=== PATIENT | male | born 1955 | race Caucasian/White ===

== ENCOUNTER 2016-12-30 13:08 | Emergency (ER) | payer OTHER ==
[2016-12-30 13:26] VITALS: BP 116/74; PULSE 86; TEMP 98; BMI 33.6
--- NOTE | 2016-12-30 14:37 | PDOC ---
History of Present Illness - General History Source: Patient, Family ([id number]) Exam Limitations: No Limitations - History of Present Illness Initial Comments: 12/30/16 15:05 The patient is a 61 year old female with a significant PMH of HTN, anxiety, arthritis, and hernia who presents to the emergency department with face redness and pus release from the scalp beginning approximately last week. The patient reports putting a new [place] dye in her hair and feeling as though she developed a rash and noted the presence of pus. The patients daughter-in law notes giving the patient Benadryl with no relief. She also mentioned that the patient is allergic to peroxide but used the dye on the assumption that she would not develop a reaction. The patient normally resides in [place] but is in [facility]. The patient denies chest pain, shortness of breath, headache and dizziness. Denies fever, chills, nausea, vomit, diarrhea and constipation. Denies dysuria, frequency, urgency and hematuria. Allergies: Aspirin, Peroxide Social history: No reported cigarette, alcohol, or drug use. <Tacho Vidal - Last Filed: 12/30/16 15:39> <Anat Spencer - Last Filed: 12/30/16 15:55> - General Chief Complaint: Burn Stated Complaint: BURN/RASH Time Seen by Provider: 12/30/16 14:35 Past History <Tacho Vidal - Last Filed: 12/30/16 15:39> - Past Medical History Asthma: Yes GI Disorders: Yes (Umbilical Hernia) HTN: Yes Psychiatric Problems: Yes (Anxiety) Other medical history: Arthritis - Surgical History Cholecystectomy: Yes - Immunization History Immunization Up to Date: Yes - Suicide/Smoking/Psychosocial Hx Smoking History: Never smoked Have you smoked in the past 12 months: No Information on smoking cessation initiated: No Hx Alcohol Use: No Drug/Substance Use Hx: No Substance Use Type: None <Anat Spencer - Last Filed: 12/30/16 15:55> - Past Medical History Allergies/Adverse Reactions: Allergies Allergy/AdvReac Type Severity Reaction Status Date / Time aspirin Allergy Verified 12/30/16 13:21 Home Medications: Ambulatory Orders Cephalexin [Keflex] 500 mg PO TID #30 capsule 12/30/16 Clonazepam [KlonoPIN -] 2 mg PO DAILY 12/30/16 Lisinopril/Hydrochlorothiazide [Lisinopril-Hctz 20-25 mg Tab] 1 each PO ASDIR Loratadine [Claritin] 10 mg PO DAILY #30 tablet 12/30/16 Methylprednisolone [Medrol Dose Gerson] 4 mg PO ASDIR #21 tablet 12/30/16 Naproxen Sodium [Naproxen Sodium ER] 500 mg PO ASDIR 12/30/16 Naproxen [Naprosyn -] 500 mg PO BID #30 tablet 12/30/16 Sertraline HCl [Zoloft -] 50 mg PO DAILY 12/30/16 Review of Systems - Review of Systems Able to Perform ROS?: Yes Comments:: 12/30/16 15:05 GENERAL/CONSTITUTIONAL: No fever or chills. No weakness. HEAD, EYES, EARS, NOSE AND THROAT: No change in vision. No ear pain or discharge. No sore throat. CARDIOVASCULAR: No chest pain or shortness of breath. RESPIRATORY: No cough, wheezing, or hemoptysis. GASTROINTESTINAL: No nausea, vomiting, diarrhea or constipation. GENITOURINARY: No dysuria, frequency, or change in urination. MUSCULOSKELETAL: No joint or muscle swelling or pain. No neck or back pain. SKIN: (+) Face redness and swelling. NEUROLOGIC: No headache, vertigo, loss of consciousness, or change in strength/ sensation. ENDOCRINE: No increased thirst. No abnormal weight change. HEMATOLOGIC/LYMPHATIC: No anemia, easy bleeding, or history of blood clots. ALLERGIC/IMMUNOLOGIC: No hives or skin allergy. (+) Pruritis on scalp. <Tacho Vidal - Last Filed: 12/30/16 15:39> *Physical Exam - Vital Signs Last Vital Signs Temp Pulse Resp BP Pulse Ox 98.0 F 86 15 116/74 97 12/30/16 13:21 12/30/16 13:21 12/30/16 13:21 12/30/16 13:21 12/30/16 13:21 - Physical Exam Comments: 12/30/16 15:05 GENERAL: Awake, alert, and fully oriented, in no acute distress HEAD: (+) Erythematous scaling skin to scalp. (+) Palpable occipital lymph node on the right side. No evidence of cellulitis on skin. No signs of trauma EYES: PERRLA, EOMI, sclera anicteric, conjunctiva clear ENT: Auricles normal inspection, hearing grossly normal, nares patent, oropharynx clear without exudates. Moist mucosa NECK: Normal ROM, supple, no lymphadenopathy, JVD, or masses LUNGS: Breath sounds equal, clear to auscultation bilaterally. No wheezes, and no crackles HEART: Regular rate and rhythm, normal S1 and S2, no murmurs, rubs or gallops ABDOMEN: Soft, nontender, normoactive bowel sounds. No guarding, no rebound. No masses EXTREMITIES: Normal range of motion, no edema. No clubbing or cyanosis. No cords, erythema, or tenderness NEUROLOGICAL: Cranial nerves II through XII grossly intact. Normal speech, normal gait SKIN: (+) Right periorbital edema, mild erythema. (+) Dry scalp, erythema on scalp. Warm, Dry, normal turgor, no lesions. No lesions, abrasions, or lacerations noted. <Tacho Vidal - Last Filed: 12/30/16 15:39> - Vital Signs Last Vital Signs Temp Pulse Resp BP Pulse Ox 98.0 F 86 15 116/74 97 12/30/16 13:21 12/30/16 13:21 12/30/16 13:21 12/30/16 13:21 12/30/16 13:21 <Anat Spencer - Last Filed: 12/30/16 15:55> Medical Decision Making - Medical Decision Making 12/30/16 14:37 A/P: Patient with contact dermatitis, topical allergic reaction to hair dye. Explained to patient she must never use the hair dye again. Will start patient on Claritin and Medrol Dosepak, follow-up with dermatology. Patient also requesting prescription for Naprosyn states she takes it at home in [place] left prescription they are needed for her arthritic pain. Will give prescription also for Keflex if any secondary signs of infection, cellulitis develop patient to return immediately to ER and start antibiotic therapy. I discussed the physical exam findings, ancillary test results and final diagnoses with the patient. I answered all of the patient's questions. The patient was satisfied with the care received and felt comfortable with the discharge plan and treatment plan. The patient will call to arrange follow-up and will return to the Emergency Department with any new, persistent or worsening symptoms. <Anat Spencer - Last Filed: 12/30/16 15:55> *DC/Admit/Observation/Transfer - Attestations Scribe Attestion: 12/30/16 15:05 Documentation prepared by Tacho Vidal, acting as medical secretary for Anat Spencer NP. <Tacho Vidal - Last Filed: 12/30/16 15:39> - Discharge Dispostion Admit: No <Anat Spencer - Last Filed: 12/30/16 15:55> Diagnosis at time of Disposition: Allergic reaction to chemical substance Qualifiers: Encounter type: initial encounter Injury intent: accidental or unintentional Qualified Code(s): T65.91XA - Toxic effect of unspecified substance, accidental (unintentional), initial encounter - Discharge Dispostion Disposition: HOME Condition at time of disposition: Good - Prescriptions Prescriptions: Loratadine [Claritin] 10 mg PO DAILY #30 tablet Cephalexin [Keflex] 500 mg PO TID #30 capsule Methylprednisolone [Medrol Dose Gerson] 4 mg PO ASDIR #21 tablet Naproxen [Naprosyn -] 500 mg PO BID #30 tablet - Referrals Referrals: STAFF,NOT ON [Primary Care Provider] - - Patient Instructions Printed Discharge Instructions: DI for General Allergic Reactions Additional Instructions: Please refrain from use of hair dye Recommend follow-up with dermatology. If any increased redness, swelling, or evidence of infection please start taking antibiotics and return to ER for evaluation
== END 2016-12-30 15:52 | disposition home or self-care (01) ==
LOC: JERFT 13:08
DX: T65.91XA Toxic effect of unspecified substance, accidental (unintentional), initial encounter (principal); I10 Essential (primary) hypertension; F41.9 Anxiety disorder, unspecified
CPT/HCPCS: 99281-25